=== PATIENT | male | born 1965 | race Two or more races ===

== ENCOUNTER 2020-04-18 13:33 | Emergency (ER) | payer OTHER ==
[~2020-04-18] VITALS: Ht 170.2 cm; Wt 95.5 kg
[2020-04-18] MEDS ORDERED: ALBUTEROL 6.7GM HFA INHALER ORI NR (14:30)
[2020-04-18] MEDS ORDERED: DOXYCYCLINE HYCLATE 100MG CAPSULE PO ONE (17:15)
[2020-04-18 18:24] LABS: CHLORIDE 98 mEq/L (98-107)
[2020-04-18 18:54] LABS: BASOPHILS % 0.5 % (0.0-2.0); EOSINOPHILS % 0.4 % (0.0-5.0); HEMATOCRIT. 45.2 % (42.0-52.0); HEMOGLOBIN. 15.3 g/dL (14.0-18.0); LYMPHOCYTES % 10.7 % (20.0-50.0); MEAN CORPUSCULAR HEMOGLOBIN 30.3 pg (28.0-32.0); MEAN CORPUSCULAR VOLUME 89.5 fL (80.0-94.0); MONOCYTES % 10.8 % (2.0-8.0); NEUTROPHILS % 77.6 % (40.0-76.0); PLATELET 324 x1000/uL (130-400); RED BLOOD CELL COUNT 5.05 mill/uL (4.7-6.1); RED CELL DISTRIBUTION WIDTH 12.7 % (11.6-14.6)
[2020-04-18 19:29] VITALS: BP 110/71
== END 2020-04-19 02:30 | disposition home or self-care (01) ==
LOC: ER 13:33
DX: J12.9 Viral pneumonia, unspecified (principal)
CPT/HCPCS: 36415; 71045; 80048; 85025; 99284